=== PATIENT | female | born 2000 | race Two or more races ===

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

== ENCOUNTER 2019-01-11 20:41 | Emergency (ER) | payer OTHER ==
[~2019-01-11] VITALS: Ht 160 cm; Wt 60.3 kg
[2019-01-11 20:46] VITALS: Ht 160 cm; Wt 60.3 kg
[2019-01-11 21:45] VITALS: BP 102/62
== END 2019-01-11 21:45 | disposition home or self-care (01) ==
LOC: ED 20:41
DX: N39.0 Urinary tract infection, site not specified (principal)
CPT/HCPCS: 87491; 87591